=== PATIENT | male | born 1995 | race Caucasian/White ===

== ENCOUNTER 2018-01-01 16:13 | Emergency (ER) | payer BC ==
[2018-01-01] MEDS ORDERED: Ibuprofen 200 MG TAB ONE (16:33)
--- NOTE | 2018-01-01 17:30 | CT ---
CT OF THE BRAIN WITHOUT CONTRAST 01/01/18 The ventricles are normal in size with no shift. No intracranial bleeding, mass, sign of stroke, or e xtra-axial hematoma was seen. The calvarium appears intact with no sign of fracture. The sphenoid sin us and mastoid air cells are clear. IMPRESSION: No acute intracranial finding. POS: HOME
== END 2018-01-01 16:57 ==
LOC: BURERS 16:13
DX: S01.01XA Laceration without foreign body of scalp, initial encounter (principal); F17.210 Nicotine dependence, cigarettes, uncomplicated; Z79.899 Other long term (current) drug therapy; W20.8XXA Other cause of strike by thrown, projected or falling object, initial encounter
CPT/HCPCS: 12002; 70450